=== PATIENT | male | born 1970 | race Hispanic/Latino ===

== ENCOUNTER 2016-09-25 12:16 | Emergency (ER) | payer OTHER ==
[2016-09-25 12:32] VITALS: TEMP 97.8
[2016-09-25 13:41] LABS: BASO # 0.1 K/uL (0.0-0.2); BASO % 0.9 % (0.0-2.0); EOS # 0.1 K/uL (0.0-0.7); EOS % 1.7 % (0.0-4.0); HEMATOCRIT 42.8 % (35.0-51.0); LYMPH # 1.1 K/uL (1.0-4.3); LYMPH % 13.4 % (20.0-40.0); MEAN CELL VOLUME 89.2 fl (80.0-94.0); MEAN CORPUSCULAR HEMOGLOBIN 29.6 pg (27.0-31.0); MEAN CORPUSCULAR HGB CONC 33.2 g/dL (33.0-37.0); MEAN PLATELET VOLUME 8.5 fl (7.2-11.7); MONO # 0.5 K/uL (0.0-0.8); MONO % 6.6 % (0.0-10.0); NEUT # 6.2 K/uL (1.8-7.0); NEUT % 77.4 % (50.0-75.0); NRBC % 0.1 % (0.0-0.0); RED CELL DISTRIBUTION WIDTH 13.6 % (11.5-14.5)
[2016-09-25 13:48] LABS: BLOOD UREA NITROGEN 15 mg/dl (9-20); CALCIUM 9.1 mg/dL (8.4-10.2); CARBON DIOXIDE 25 mmol/L (22-30); CHLORIDE 105 mmol/L (98-107); GFR AFRICAN-AMERICAN > 60; GLUCOSE,RANDOM 96 mg/dL (75-110); POTASSIUM 4.7 MMOL/L (3.6-5.0); SODIUM 143 mmol/l (132-148)
--- NOTE | 2016-09-25 14:18 | ED PDOC ---
HPI: Abdomen Time Seen by Provider: 09/25/16 12:39 Chief Complaint (Nursing): Abdominal Pain Chief Complaint (Provider): Left sided flank pain History Per: Patient History/Exam Limitations: no limitations Onset/Duration Of Symptoms: Hrs (1x hour prior to arrival), Sudden Onset Current Symptoms Are (Timing): Still Present Severity: Moderate Location Of Pain/Discomfort: Other (left flank) Quality Of Discomfort: Sharp Associated Symptoms: denies: Fever, Chills, Nausea, Vomiting, Urinary Symptoms Additional Complaint(s): 45 year old male patient with a history of kidney stones presents to the ED with complaints of left sided flank pain that started 1x hour prior to arrival. He describes the pain as sharp and intense, and radiating to his left groin. He denies having bloody urine, nausea, vomiting, chills, and a fever. PMD: Patient does not recall. Past Medical History Reviewed: Historical Data, Nursing Documentation, Vital Signs Vital Signs: Last Vital Signs Temp 97.8 F 09/25/16 12:28 Pulse 64 09/25/16 12:28 Resp 16 09/25/16 12:28 BP 128/79 09/25/16 12:28 Pulse Ox 100 09/25/16 15:03 - Medical History PMH: Kidney Stones - Surgical History Surgical History: No Surg Hx - Family History Family History: States: Unknown Family Hx - Social History Alcohol: Social Drugs: Denies - Immunization History Hx Tetanus Toxoid Vaccination: (unsure) - Home Medications Home Medications: Ambulatory Orders Medication Instructions Recorded Acetaminophen/Hydrocodone Bi 1 tab PO Q4 PRN #15 tab 11/05/14 [Vicodin 300 mg-5 mg] Cephalexin [Keflex] 500 mg PO TID #21 cap 11/05/14 Ciprofloxacin HCl [Cipro] 500 mg PO BID #10 tablet 09/25/16 - Allergies Allergies/Adverse Reactions: Allergies Allergy/AdvReac Type Severity Reaction Status Date / Time No Known Allergies Allergy Verified 09/25/15 09:25 Review of Systems ROS Statement: Except As Marked, All Systems Reviewed And Found Negative Constitutional: Negative for: Fever, Chills Gastrointestinal: Positive for: Abdominal Pain (left side flank to left groin). Negative for: Nausea, Vomiting Physical Exam - Reviewed Nursing Documentation Reviewed: Yes Vital Signs Reviewed: Yes - Physical Exam Appears: Positive for: Well, Non-toxic, No Acute Distress Head Exam: Positive for: ATRAUMATIC, NORMOCEPHALIC Skin: Positive for: Normal Color, Warm, Dry. Negative for: Diaphoresis Cardiovascular/Chest: Positive for: Regular Rate, Rhythm. Negative for: Edema Respiratory: Positive for: Normal Breath Sounds. Negative for: Respiratory Distress Gastrointestinal/Abdominal: Positive for: Normal Exam, Soft. Negative for: Tenderness Back: Positive for: Normal Inspection. Negative for: L CVA Tenderness Neurologic/Psych: Positive for: Alert, Oriented (3x) - Laboratory Results Result Diagrams: 09/25/16 13:35 09/25/16 13:35 - ECG O2 Sat by Pulse Oximetry: 100 (RA) Pulse Ox Interpretation: Normal Medical Decision Making Medical Decision Makin:39 Initial impression: 45 year old male with a history of kidney stones has left side flank. Differential diagnoses include but are not limited to renal colic due to passing kidney stones, and UTI. Initial plan: * BMP * udip * CBC * urine culture * reevaluation Pain is completely resolved. No other complains. No indications for further testing. Given return instructions. Scribe Attestation: Documented by Ashanti Lewis, acting as a scribe for Leela Grijalva MD. Provider Scribe Attestation: All medical record entries made by the Scribe were at my direction and personally dictated by me. I have reviewed the chart and agree that the record accurately reflects my personal performance of the history, physical exam, medical decision making, and the department course for this patient. I have also personally directed, reviewed, and agree with the discharge instructions and disposition. Disposition - Clinical Impression Clinical Impression: Renal colic, Flank pain, UTI (urinary tract infection) - Patient ED Disposition Is Patient to be Admitted: No Doctor Will See Patient In The: Office Counseled Patient/Family Regarding: Studies Performed, Diagnosis, Need For Followup - Disposition Referrals: Christina,Oscar J, MD [Medical Doctor] - Disposition: Routine/Home Disposition Time: 15:01 Condition: GOOD Additional Instructions: Follow up with your PCP in 2-3 days. Return for worsening. Prescriptions: Ciprofloxacin HCl [Cipro] 500 mg PO BID #10 tablet Instructions: Renal Colic (ED)
[2016-09-25 15:14] VITALS: BP 134/80; PULSE 74; RESP 18; O2SAT 98
== END 2016-09-25 15:14 | disposition home or self-care (01) ==
LOC: H.ER 12:16
DX: N39.0 Urinary tract infection, site not specified (principal); N23 Unspecified renal colic; N20.0 Calculus of kidney

== ENCOUNTER 2018-11-29 10:09 | Emergency (ER) | payer BC, OTHER ==
[2018-11-29 10:12] VITALS: BP 146/89; PULSE 67; RESP 17; TEMP 98.3
[2018-11-29 10:13] VITALS: BMI 35.6
--- NOTE | 2018-11-29 10:35 | ED PDOC ---
Upper Extremity Pain/Injury Time Seen by Provider: 11/29/18 10:23 Chief Complaint (Nursing): Upper Extremity Problem/Injury Chief Complaint (Provider): Upper Extremity Problem/Injury History Per: Patient History/Exam Limitations: no limitations Onset/Duration Of Symptoms: Days (2) Quality: "Pain" Additional Complaint(s): 48 y/o male presents to the ED due to pain on dorsum of left hand that happen 2 days ago. Patient states he was playing with his son when his hand flexed underneath him when his son jumped on top of him. PMD: none provided Past Medical History Reviewed: Historical Data, Nursing Documentation, Vital Signs Vital Signs: Last Vital Signs Temp 98.3 F 11/29/18 10:12 Pulse 67 11/29/18 10:12 Resp 17 11/29/18 10:12 BP 146/89 11/29/18 10:12 Pulse Ox 98 11/29/18 10:23 Primary Care Provider: FAMILY PROVIDER,NO - Medical History PMH: Kidney Stones - Family History Family History: States: Unknown Family Hx - Immunization History Hx Tetanus Toxoid Vaccination: (unsure) - Home Medications Home Medications: Ambulatory Orders Medication Instructions Recorded Acetaminophen/Hydrocodone Bi 1 tab PO Q4 PRN #15 tab 11/05/14 [Vicodin 300 mg-5 mg] Cephalexin [Keflex] 500 mg PO TID #21 cap 11/05/14 Ciprofloxacin HCl [Cipro] 500 mg PO BID #10 tablet 09/25/16 Naproxen [Naprosyn] 500 mg PO Q12H #20 tab 11/29/18 - Allergies Allergies/Adverse Reactions: Allergies Allergy/AdvReac Type Severity Reaction Status Date / Time No Known Allergies Allergy Verified 11/29/18 10:23 Review of Systems ROS Statement: Except As Marked, All Systems Reviewed And Found Negative Musculoskeletal: Positive for: Hand Pain (Left ) Physical Exam - Reviewed Nursing Documentation Reviewed: Yes Vital Signs Reviewed: Yes - Physical Exam Extremity: Positive for: Normal ROM (Full ROM), Tenderness (Base of 2nd and 3rd metacarpal.). Negative for: Deformity Neurological/Psych: Positive for: Awake, Alert, Normal Tone, Oriented (x3). Negative for: Motor/Sensory Deficits - ECG O2 Sat by Pulse Oximetry: 98 Medical Decision Making Medical Decision Making: Time:1026 Impression: Left hand injury Plan: -Hand x-ray Scribe Attestation: Documented by Edita Bhakta, acting as a scribe for Wenceslao Munoz. Provider Scribe Attestation: All medical record entries made by the Scribe were at my direction and personally dictated by me. I have reviewed the chart and agree that the record accurately reflects my personal performance of the history, physical exam, medical decision making, and the department course for this patient. I have also personally directed, reviewed, and agree with the discharge instructions and disposition. Disposition - Clinical Impression Clinical Impression: Sprain - Patient ED Disposition Is Patient to be Admitted: No Counseled Patient/Family Regarding: Studies Performed, Diagnosis, Need For Followup, Rx Given - Disposition Disposition: Routine/Home Disposition Time: 11:00 Condition: FAIR Prescriptions: Naproxen [Naprosyn] 500 mg PO Q12H #20 tab Instructions: Sprain (DC) Forms: [employer] ([place]ian)
[2018-11-29 11:14] VITALS: O2SAT 100
--- NOTE | 2018-11-29 11:38 | RAD ---
PROCEDURE: Left Hand Radiographs. HISTORY: Unspecified injury. COMPARISON: None. TECHNIQUE: 3 views obtained. FINDINGS: BONES: Normal. No fracture. JOINTS: Normal. No osteoarthritic changes. SOFT TISSUES: Normal. OTHER FINDINGS: None. IMPRESSION: Normal left hand radiographs.
== END 2018-11-29 11:10 | disposition home or self-care (01) ==
LOC: H.ER 10:09
DX: S63.92XA Sprain of unspecified part of left wrist and hand, initial encounter (principal); X50.9XXA Other and unspecified overexertion or strenuous movements or postures, initial encounter; Y92.89 Other specified places as the place of occurrence of the external cause